=== PATIENT | female | born 1945 | race Caucasian/White ===

== ENCOUNTER 2021-02-11 20:35 | Emergency (ER) | payer MEDICARE, OTHER, SELFPAY ==
--- NOTE | ~2021-02-11 | CT_ITS ---
EXAMINATION: CT brain wo con INDICATION: Head injury, hallucinations, unsteady gait COMPARISON: None TECHNIQUE: Standard unenhanced head CT. The dose-length product (DLP) was 605.33 mGy-cm. The mA was a djusted according to patient size. Iterative reconstruction technique was employed. FINDINGS: There is a left parietal scalp hematoma. There is no acute intraparenchymal hemorrhage. No evidence of mass lesion. No evidence of acute infarction. There is moderate periventricular and subco rtical hypodensity probably related to small vessel ischemic disease. There is moderate prominence of the sulci and ventricles related to cerebral atrophy. Intracranial calcified cerebral atherosclerosi s is noted. There are no extra-axial collections. There appear to be changes of prior left frontal cr aniotomy. There is no mass effect or midline shift. The orbits are unremarkable. The visualized sinus es and mastoid air cells are well aerated. IMPRESSION: 1. No acute intracranial abnormality. 2. Age related findings. Reviewed, dictated and finalized at location A.
[2021-02-11 20:34] VITALS: BP 135/65; PULSE 71; RESP 18; TEMP 36.4; O2SAT 100
--- NOTE | 2021-02-11 20:35 | ED.FALL ---
HPI - Fall General Chief Complaint: Fall Stated Complaint: 2 GLF X 2 TODAY History of Present Illness HPI Narrative: 75 yo female w/ h/o MS, HTN presents to the ED after a fall. She reports that she has fallen every day since moving to the facility where she is living no. She is unsure why she has been falling. No dizziness, weakness, dysuria, syncope. She did hit her head in the fall. Related Data Allergies Allergy/AdvReac Type Severity Reaction Status Date / Time No Known Allergies Allergy Verified 02/11/21 22:51 Review of Systems Review of Systems: All systems reviewed & are unremarkable except as noted in HPI and below Constitutional: Constitutional: Denies chills and Denies fever(s) Eyes: Eyes: Reports no additional eye complaints Cardiovascular: Cardiovascular: Denies chest pain Respiratory: Respiratory: Denies dyspnea Gastrointestinal: Gastrointestinal: Denies nausea and Denies vomiting Genitourinary: Genitourinary: Denies hematuria and Denies dysuria Musculoskeletal: Musculoskeletal: Reports back pain Neurologic: Denies dizziness Psychiatric: Psychiatric: Denies anxiety [facility] Past Medical History Medical History (Updated 02/12/21 @ 00:16 by Dipak Rivera MD) HTN (hypertension) Multiple sclerosis Exam Const: General: healthy appearing, no acute distress and alert Orientation/consciousness: patient oriented x3 HENMT: Head: normal to inspection, no hematomas and no lacerations Eyes: Pupils: Equal, round and reactive pupils present Resp: Effort & Inspection: normal respiratory effort Auscultation: clear to auscultation bilaterally Cardio: Rate: regular rate Rhythm: regular rhythm Skin: General skin exam: normal color Neuro: General: patient oriented x3, moves all extremities, no focal motor deficits and CN's II-XI intact bilaterally Speech: normal speech Extrem: General: normal to inspection and no edema Course Vital Signs Vital signs: Vital Signs Temperature 36.4 C L 02/11/21 20:34 Pulse Rate 71 02/11/21 20:34 Respiratory Rate 18 02/11/21 20:34 Blood Pressure 135/65 02/11/21 20:34 Pulse Oximetry 100 02/11/21 20:34 Temperature 36.4 C L 02/11/21 20:34 Pulse Rate 73 02/12/21 01:06 Respiratory Rate 18 02/12/21 01:06 Blood Pressure 166/67 H 02/12/21 00:16 Pulse Oximetry 99 02/12/21 01:06 MDM - Fall MDM Narrative Medical decision making narrative: She has mild anemia. No prior labs for comparison. imaging negative. Differential Diagnosis Differential diagnosis: Likely syncope and other (UTI, anrmia, dehydration) Medical Records Attestation: I reviewed the patient's medical records. Lab Data Attestation: I reviewed the patient's lab results. Result diagrams: 02/11/21 21:38 02/11/21 21:38 Labs: Lab Results 02/11/21 02/11/21 02/11/21 Range/Units 21:38 21:38 23:08 WBC 6.0 (4.5-10.0) K/mm3 RBC 3.53 L (4.2-5.4) M/mm3 Hgb 10.3 L (12.0-15.0) g/dL Hct 32.1 L (37.0-47.0) % MCV 90.9 (80-100) fl MCH 29.2 (26-34) pg MCHC 32.1 (32-36) g/dl RDW 14.9 H (11.5-14.5) % Plt Count 151 (150-375) k/mm3 MPV 10.7 H (7.4-10.4) fl Immature Gran % (Auto) 0.2 (0-0.5) % Neut % (Auto) 67.2 (45.5-73.1) % Lymph % (Auto) 19.7 (18.3-44.2) % [place] % (Auto) 10.9 H (2.6-8.5) % Eos % (Auto) 1.7 (0-4.4) % Baso % (Auto) 0.3 (0.2-1.2) % Lymph # (Auto) 1.19 (0.9-3.2) K/mm3 [place] # (Auto) 0.7 H (0.1-0.6) K/mm3 Eos # (Auto) 0.1 (0-0.3) K/mm3 Baso # (Auto) 0.0 (0.0-0.1) K/mm3 Abs Immat Gran (auto) 0.01 (0.00-0.031) K/mm3 Absolute Neuts (auto) 4.1 (1.3-6.7) K/mm3 Absolute Nucleated RBC 0.0 (0.0-0.012) K/mm3 Nucleated RBC % 0.0 (0.0-0.2) % Sodium 141 (137-145) mmol/L Potassium 4.2 (3.4-5.0) mmol/L Chloride 108 H (98-107) mmol/L Carbon Dioxide 26 (22-30) mmol/L Anion Gap 7 L (8-16) mmol/L BUN 35
--- NOTE | 2021-02-11 21:02 | ECG_ITS ---
Measurements Intervals [place] Rate: 63 P: 33 [place]: 168 QRS: 3 QRSD: 84 T: 26 QT: 409 QTc: 421 Interpretive Statements SINUS RHYTHM LEFT VENTRICULAR HYPERTROPHY AND ST-T CHANGE BORDERLINE ST ABNORMALITY- INFERIOR LEADS BORDERLINE ECG Electronically Signed On 02-12-2021 6:21:31 CDT by Mello Butler D.O.
[2021-02-11 21:45] LABS: Basophils Percent Auto 0.3 % (0.2-1.2); Eosinophils Absolute Auto 0.1 K/mm3 (0-0.3); Eosinophils Percent Auto 1.7 % (0-4.4); Hematocrit 32.1 % (37.0-47.0); Hemoglobin 10.3 g/dL (12.0-15.0); Immature Granulocyte Absolute 0.01 K/mm3 (0.00-0.031); Immature Granulocyte Percent A 0.2 % (0-0.5); Lymphocytes Absolute Auto 1.19 K/mm3 (0.9-3.2); Lymphocytes Percent Auto 19.7 % (18.3-44.2); Mean Corpuscular HGB Conc 32.1 g/dl (32-36); Mean Corpuscular Hemoglobin 29.2 pg (26-34); Mean Corpuscular Volume 90.9 fl (80-100); Mean Platelet Volume 10.7 fl (7.4-10.4); Monocytes Absolute Auto 0.7 K/mm3 (0.1-0.6); Monocytes Percent Auto 10.9 % (2.6-8.5); Neutrophils Absolute Auto 4.1 K/mm3 (1.3-6.7); Neutrophils Percent Auto 67.2 % (45.5-73.1); Platelet Count Result 151 k/mm3 (150-375); Red Blood Count 3.53 M/mm3 (4.2-5.4); Red Cell Distribution Width 14.9 % (11.5-14.5)
[2021-02-11 21:54] LABS: Anion Gap 7 mmol/L (8-16); Blood Urea Nitrogen 35 mg/dL (7-17); Calcium 9.8 mg/dL (8.4-10.2); Carbon Dioxide 26 mmol/L (22-30); Chloride 108 mmol/L (98-107); Estimated CRCL calculation 36 ml/min; Estimated Glomerular Filt Rate 54; Glucose 80 mg/dL (65-110); Potassium 4.2 mmol/L (3.4-5.0); Sodium 141 mmol/L (137-145)
[2021-02-11] MEDS: SODIUM CHLORIDE 0.9% IV 500 ML 999 ML IV CONT (22:51)
--- NOTE | 2021-02-11 23:09 | PC.NURSE ---
Assumed care of pt at this time. Pt alert and upright on stretcher, VSS, no complaints at this time.
[2021-02-11 23:58] LABS: Add Urine Microscopic? YES; Appearance Urine Clear (Clear); Bilirubin Urine Negative (Negative); Blood Urine Negative (Negative); Color Urine Yellow (Yellow); Glucose Urine UA Negative (Negative); Ketones Urine Trace mg/dL (Negative); Leukocyte Esterase Ur Trace LEU/UL (Negative); Mucus Urine Rare /lpf; Nitrate Urine Negative (Negative); Protein Urine 1+ mg/dL (Negative); Specific Grav Ur 1.021 (1.001-1.035); Squamous Epithelial Cell Urine Rare /hpf (Few)
[2021-02-12 00:16] VITALS: BP 166/67; PULSE 68; RESP 19; O2SAT 100
--- NOTE | 2021-02-12 00:37 | PC.NURSE ---
Attempted to call report to Angi at [facility], left voicemail to call back.
--- NOTE | 2021-02-12 00:47 | PC.NURSE ---
Spoke with pts son (Loc), and was informed that he will not be able to pick pt up from ED.
[2021-02-12 01:06] VITALS: PULSE 73; RESP 18; O2SAT 99
--- NOTE | 2021-02-12 01:22 | PC.NURSE ---
made contact with [facility] to transfer pt back to [facility]. [phone]
--- NOTE | 2021-02-12 01:32 | PC.NURSE ---
Spoke with Angi at [facility] and gave verbal report at this time. Requested this RN to call facility when pt leaves ED.
--- NOTE | 2021-02-12 03:33 | PC.NURSE ---
made contact with [facility] for a new eta [id number]
--- NOTE | 2021-02-12 05:32 | PC.NURSE ---
[facility] called with an updated eta [phone]
--- NOTE | 2021-02-12 05:52 | PC.NURSE ---
[facility] has arrived
--- NOTE | 2021-02-12 05:58 | PC.NURSE ---
Care transferred to [facility] at this time. Pt alert and upright on stretcher, A&Ox4. IV removed with tip intact.
--- NOTE | 2021-02-12 05:58 | PC.NURSE ---
Care transferred to [facility] at this time. Pt A&Ox4, resting on stretcher during transport out of ED.
--- NOTE | 2021-02-12 06:10 | PC.NURSE ---
EMS notified this RN of pts elevated BP of 198 systolic. This RN asked EMS to wait in room with pt and consulted with EDP about plan of care to reduce blood pressure. Entered room to verify pts abnormal vital sign, found that [facility] had transported the pt out of ED.
--- NOTE | 2021-02-12 06:24 | PC.NURSE ---
This RN attempted to call [facility] to notify them that pt had left ED, no answer x2.
== END 2021-02-12 06:10 ==
PROVIDERS: Emergency Provider Emergency Medicine; PCP Internal Medicine
DX: S09.90XA Unspecified injury of head, initial encounter (principal); D64.9 Anemia, unspecified; G35 Multiple sclerosis; I10 Essential (primary) hypertension; W19.XXXA Unspecified fall, initial encounter
CPT/HCPCS: 36415; 70450; 80048; 81001; 85025; 93005; 96360; 99284; J7040

== ENCOUNTER 2021-12-03 07:23 | Emergency (ER) | payer MEDICARE, OTHER, SELFPAY ==
[2021-12-03] VITALS (15 sets, daily range): BP systolic 154–193; BP diastolic 66–78; PULSE 55–64; RESP 12–20; TEMP 36.7; O2SAT 88–100
--- NOTE | ~2021-12-03 | XR_ITS ---
XR chest 1V portable 12/03/2021 11:41 Indication: Fall. Transient alteration of awareness. Procedure: AP portable chest Comparison: No prior studies for comparison. Findings: Heart size normal. No focal air space disease, pulmonary edema, pleural effusion or suspect ed pneumothorax. There are multiple healed left rib fractures. Impression: 1: No acute cardiopulmonary disease. Reviewed, dictated and finalized at location A. Impression: 1: No acute cardiopulmonary disease.
--- NOTE | ~2021-12-03 | CT_ITS ---
EXAMINATION: CT brain wo con DATE: 12/03/2021 11:25 INDICATION: Frequent falls. Head injury with facial bruising. TECHNIQUE: Computed tomography (CT) of the head was performed without intravenous contrast. Sagittal and coronal reconstructions were performed. The mA was adjusted according to patient size. Iterative reconstruction technique was employed. The dose-length product was 605.33 mGy-cm. COMPARISON: head CT dated 02/11/2021 FINDINGS: Old left frontal neal hole. No calvarial fracture. No acute intracranial hemorrhage, acute infarction or abnormal extra axial fluid collection. There is moderate scattered white matter hypoattenuation c onsistent with chronic small vessel ischemic disease. Symmetric prominence of the sulci and ventricle s consistent with moderate age-appropriate diffuse cerebral volume loss. No mass/mass effect. The orb its, paranasal sinuses and mastoid air cells are normal. IMPRESSION: 1. No fracture or acute intracranial process. 2. Age-related changes including moderate diffuse volume loss and moderate scattered white matter hyp oattenuation consistent with chronic small vessel ischemic disease. Reviewed, dictated and finalized at location A. IMPRESSION: 1. No fracture or acute intracranial process. 2. Age-related changes including moderate diffuse volume loss and moderate scat tered white matter hypoattenuation consistent with chronic small vessel ischemi c disease.
--- NOTE | ~2021-12-03 | CT_ITS ---
EXAMINATION: 1. CT facial & cervical spine wo DATE: 12/03/2021 11:25 INDICATION: Frequent falls presenting with head injury with facial bruising TECHNIQUE: 1. Computed tomography (CT) of the maxillofacial region and of the cervical spine were performed with out intravenous contrast. Sagittal and coronal reconstructions of both regions were obtained. Automat ed exposure control and iterative reconstruction technique were employed. The dose-length product was 238.55 mGy-cm. COMPARISON: Head CT dated 02/11/2021 FINDINGS: Maxillofacial CT: Left frontal neal hole. Small left frontal scalp hematoma. Additional soft tissue swelling with subcu taneous hematomas in the bilateral malar regions and at the chin. No interval change in an old fractu re of the left nasal bone. Unchanged mild leftward bowing of the nasal septum. No acute maxillofacial fractures identified. Temporomandibular joints are normal alignment with severe bilateral osteoarthr itis. The orbits are normal. Paranasal sinuses are clear. Cervical spine CT: 2 mm anterolisthesis C7 on T1 and T1 on T2. 1 mm anterolisthesis T2 and T3. Cervical alignment is nor mal. Vertebral body heights are normal. No acute fracture. Severe osteoarthritis at the atlantoaxial articulation. Moderate to severe disc height loss with prominent degenerative endplate changes and se roxy uncovertebral osteoarthritis at C3-C4 through C6-C7. Posterior disc osteophyte complexes result in mild central canal stenosis at each of these levels. Severe disc height loss with additional degen erative endplate changes at C7-T1 through T2-T3. There are multiple Schmorl's nodes in the cervical a nd upper thoracic spine. Multilevel moderate to severe facet osteoarthritis in the cervical and visua lized upper thoracic spine. Together the uncovertebral osteoarthritis is results in moderate neural f oraminal stenosis on the right at C5-C6 and on the left at C3-C4, C4-C5 and C5-C6 mild neural foramin al stenosis at the majority the remaining cervical neural foramina. Cervical soft tissues are unremar kable. At the superior mediastinum the tortuous innominate artery exerts some mass effect upon the ri ght-sided the trochlea. Mild discoid atelectasis at the left apex. IMPRESSION: 1. Chronic nondisplaced left nasal bone fracture. No acute maxillofacial fractures. 2. Severe cervical and upper thoracic spondylosis. No acute osseous abnormality. Reviewed, dictated and finalized at location A. IMPRESSION: 1. Chronic nondisplaced left nasal bone fracture. No acute maxillofacial fractu res. 2. Severe cervical and upper thoracic spondylosis. No acute osseous abnormality .
--- NOTE | 2021-12-03 07:27 | ECG_ITS ---
Measurements Intervals [place] Rate: 60 P: -2 [place]: 170 QRS: -3 QRSD: 86 T: 10 QT: 434 QTc: 435 Interpretive Statements SINUS RHYTHM LEFT VENTRICULAR HYPERTROPHY WITH ST-T CHANGE NONSPECIFIC ST & T-WAVE ABNORMALITY- INFERIOR LEADS BASELINE ARTIFACT- I, II, III, AVR, AVL, AVF, V1-V6 BORDERLINE ECG Electronically Signed On 12-03-2021 7:55:40 CDT by Mello Butler D.O.
--- NOTE | 2021-12-03 07:44 | PC.NURSE ---
bed alarm placed under patient.
[2021-12-03 08:16] LABS: Appearance Urine Clear (Clear); Bilirubin Urine Negative (Negative); Blood Urine 1+ (Negative); Color Urine Yellow (Yellow); Glucose Urine UA Negative (Negative); Ketones Urine Negative (Negative); Leukocyte Esterase Ur 2+ LEU/UL (Negative); Nitrate Urine Negative (Negative); Protein Urine 1+ mg/dL (Negative); Urobilinogen Urine 0.2 mg/dL (<2.0)
[2021-12-03 08:30] LABS: Alanine Aminotransferase 19 U/L (6-35); Alkaline Phosphatase 90 U/L (38-126); Anion Gap 10 mmol/L (8-16); Aspartate Amino Transferase 29 U/L (14-36); Bilirubin,Total 0.5 mg/dL (0.2-1.3); Blood Urea Nitrogen 16 mg/dL (7-17); Calcium 9.4 mg/dL (8.4-10.2); Carbon Dioxide 26 mmol/L (22-30); Chloride 106 mmol/L (98-107); Estimated CRCL calculation 51 ml/min; Estimated Glomerular Filt Rate > 60; Glucose 89 mg/dL (65-110); Potassium 3.6 mmol/L (3.4-5.0); Sodium 142 mmol/L (137-145)
[2021-12-03 08:32] LABS: Bacteria Urine Trace /hpf; Mucus Urine Rare /lpf; Squamous Epithelial Cell Urine Few /hpf (Few); Transitional Epi Cells Urine Rare /hpf (None Seen); WBC Urine 21-30 /hpf
[2021-12-03 08:42] LABS: Add Urine Microscopic? YES
[2021-12-03 09:07] LABS: Basophils Percent Auto 0.2 % (0.2-1.2); Eosinophils Absolute Auto 0.2 K/mm3 (0-0.3); Eosinophils Percent Auto 5.1 % (0-4.4); Hematocrit 35.7 % (37.0-47.0); Hemoglobin 11.5 g/dL (12.0-15.0); Immature Granulocyte Absolute 0.04 K/mm3 (0.00-0.031); Lymphocytes Absolute Auto 0.32 K/mm3 (0.9-3.2); Lymphocytes Percent Auto 7.8 % (18.3-44.2); Mean Corpuscular HGB Conc 32.2 g/dl (32-36); Mean Corpuscular Hemoglobin 30.1 pg (26-34); Mean Corpuscular Volume 93.5 fl (80-100); Mean Platelet Volume 10.9 fl (7.4-10.4); Monocytes Absolute Auto 0.6 K/mm3 (0.1-0.6); Monocytes Percent Auto 14.6 % (2.6-8.5); Neutrophils Absolute Auto 2.9 K/mm3 (1.3-6.7); Neutrophils Percent Auto 71.3 % (45.5-73.1); Platelet Count Result 193 k/mm3 (150-375); Red Blood Count 3.82 M/mm3 (4.2-5.4); Red Cell Distribution Width 14.6 % (11.5-14.5); White Blood Count 4.1 K/mm3 (4.5-10.0)
--- NOTE | 2021-12-03 10:45 | ED.FALL ---
HPI - Fall General Chief Complaint: Fall Stated Complaint: Fall Time Seen by Provider: 12/03/21 07:38 Source: patient and EMS Mode of arrival: EMS Limitations: no limitations History of Present Illness HPI Narrative: Patient is 76 years old white female came from [facility]term by ambulance complaining of multiple falls in the last few days. Last fall was yesterday,, was found on floor this morning by staff, patient reports taking Benadryl last night that is caused her to be dizzy and the fall. She denies any pain at present. She is awake, alert and oriented x3. Patient is not on any blood thinner Related Data Home Medications Medication Instructions Recorded Confirmed acetaminophen-codeine 1 tablet DAILY PRN 12/03/21 amlodipine 5 mg DAILY 12/03/21 azelastine 1 drp EACH EYE BID 12/03/21 bupropion HCl 150 mg PO BID 12/03/21 cholecalciferol (vitamin D3) 50 mcg PO DAILY 12/03/21 [Vitamin D3] dextroamphetamine-amphetamine 60 mg PO DAILY 12/03/21 levothyroxine 125 mcg DAILY 12/03/21 lisinopril-hydrochlorothiazide 2 tablet DAILY 12/03/21 metoprolol succinate 50 mg PO DAILY 12/03/21 omeprazole 20 mg BID 12/03/21 ozanimod [Zeposia Starter Kit] ea PO 12/03/21 potassium chloride 10 meq PO BID 12/03/21 primidone 250 mg DAILY 12/03/21 simvastatin 200 mg DAILY 12/03/21 tizanidine 2 mg TID PRN 12/03/21 vortioxetine [Trintellix] 20 mg DAILY 12/03/21 Allergies Allergy/AdvReac Type Severity Reaction Status Date / Time No Known Allergies Allergy Verified 12/03/21 07:28 Review of Systems Review of Systems: All systems reviewed & are unremarkable except as noted in HPI and below PMFSH Past Medical History Medical History HTN (hypertension) Multiple sclerosis Exam Narrative: General appearance: Well-developed, well-nourished Skin: Multiple bruises on the face, left chest. Head: Normocephalic, nontraumatic Eyes: Clear conjunctiva ENT: Oropharynx normal, ears normal, nose normal Neck: Supple, nontender Chest and respiratory: Airway patent, no respiratory distress, no accessory muscle use Heart: Regular rate/rhythm Abdomen: Soft, nontender, no organomegaly, quiet bowel sounds Vascular: Normal peripheral pulses, normal capillary refill. Musculoskeletal: Limited range of motion all over because of age and immobility, severe kyphosis Neurologic: Alert and oriented ?3, Course Vital Signs Vital signs: Vital Signs Temperature 36.7 C 12/03/21 07:20 Pulse Rate 64 12/03/21 07:20 Respiratory Rate 16 12/03/21 07:20 Blood Pressure 193/66 H 12/03/21 07:20 Pulse Oximetry 99 12/03/21 07:20 Temperature 36.7 C 12/03/21 07:20 Pulse Rate 55 L 12/03/21 12:25 Respiratory Rate 16 12/03/21 12:25 Blood Pressure 160/68 H 12/03/21 12:25 Pulse Oximetry 100 12/03/21 12:25 MDM - Fall Lab Data Result diagrams: 12/03/21 09:00 12/03/21 08:05 Labs: Lab Results 12/03/21 12/03/21 12/03/21 Range/Units 07:44 08:05 08:05 WBC (4.5-10.0) K/mm3 RBC (4.2-5.4) M/mm3 Hgb (12.0-15.0) g/dL Hct (37.0-47.0) % MCV (80-100) fl MCH (26-34) pg MCHC (32-36) g/dl RDW (11.5-14.5) % Plt Count (150-375) k/mm3 MPV (7.4-10.4) fl Immature Gran % (Auto) (0-0.5) % Neut % (Auto) (45.5-73.1) % Lymph % (Auto) (18.3-44.2) % [place] % (Auto) (2.6-8.5) % Eos % (Auto) (0-4.4) % Baso % (Auto) (0.2-1.2) % Lymph # (Auto) (0.9-3.2) K/mm3 [place] # (Auto) (0.1-0.6) K/mm3 Eos # (Auto) (0-0.3) K/mm3 Baso # (Auto) (0.0-0.1) K/mm3 Abs Immat Gran (auto) (0.00-0.031)
[2021-12-03] MEDS: SODIUM CHLORIDE 0.9% IV 1,000 ML 999 ML IV CONT (11:43)
[2021-12-03 11:58] LABS: SARS-CoV-2 RNA PCR Negative
[2021-12-03 12:44] LABS: Creatine Kinase 53 U/L (30-135)
== END 2021-12-03 14:40 ==
PROVIDERS: Emergency Provider Emergency Medicine
DX: N39.0 Urinary tract infection, site not specified (principal); I10 Essential (primary) hypertension; G35 Multiple sclerosis; Z20.822 Contact with and (suspected) exposure to COVID-19; W19.XXXA Unspecified fall, initial encounter
CPT/HCPCS: 36415; 70450; 70486; 71045; 72125; 80053; 81001; 82550; 85025; 87086; 87088; 93005; 96361; 96365; 99284; C9803; J0696; J7030; U0003; U0005